=== PATIENT | male | born 1950 | race Caucasian/White ===

== ENCOUNTER → 2019-03-12 | Outpatient (CLI) | payer MEDICARE ==
--- NOTE | 2019-03-12 16:33 | REP ---
Fluoroscopic sniff test: History: The patient gives a history of abrupt onset of positional shortness of breath and inability to inspire air in the recumbent, supine position. Comparison is made with recently performed sniff test images from February 18, 2019 as well as chest x-ray from February 16, [address] pulmonary angiogram from February 16, 2019, all done at [facility]. Procedure: The sniff test was conducted initially with the patient standing as is usual and bilateral CINE fluoroscopy was performed during the sniffing maneuver. The diaphragms were observed to move appropriately and symmetrically in direction however, decreased diaphragmatic amplitude and decreased diaphragmatic velocity was observed bilaterally and symmetrically. There is no evidence to suggest unilateral or bilateral diaphragmatic paralysis. However bilateral symmetric diaphragmatic weakness may be a possibility. On review of the patient's CT pulmonary angiogram there is hypoventilation, bilateral lower lobe atelectatic changes associated with this, and there are granulomatous lymph node calcifications scattered about the left hilus and subcarinal region. Incidental note is made of a generalized but fairly impressive hypertrophy of upper abdominal and retroperitoneal fat. This contrasts with the relatively thin subcutaneous fatty layer. Impression: There is no evidence of paradoxical diaphragmatic movement. There is bilateral and symmetric decreased amplitude and decreased velocity of the diaphragm movement with sniffing. Generalized hypertrophy of the intra-abdominal fat noted in the upper abdomen on recent CT scan. Electronically Signed by Julio Cesar Jenkins MD 03/12/2019 06:15 P
== END ==
LOC: M RAD 14:30
PROVIDERS: ATTEND Internal Medicine Pulmonary Disease
DX: J98.6 Disorders of diaphragm (principal)

== ENCOUNTER → 2019-03-18 | Outpatient (CLI) | payer MEDICARE ==
--- NOTE | 2019-03-19 02:48 | REP ---
Clinical: Diaphragm disorder. Technique: Frontal inspiration and expiration views. Findings: Trace bibasilar fibroatelectatic changes cannot be excluded. No definite effusion. Symmetric decreased lung volumes on inspiration noted. No pneumothorax. Cardiac silhouette appears normal. Skeletal structures intact. Impression: Decreased volumes on the inspiratory film with trace bibasilar fibroatelectatic changes suggested. Electronically Signed by Sebastián García MD 03/19/2019 02:39 A
== END ==
LOC: M RAD 12:47
PROVIDERS: ATTEND Internal Medicine Pulmonary Disease
DX: J98.6 Disorders of diaphragm (principal)

== ENCOUNTER → 2019-03-22 | Outpatient (CLI) | payer MEDICARE ==
--- NOTE | 2019-03-25 20:47 | SLEEPCENT ---
DATE OF PROCEDURE: 03/22/2019 ORDERED BY: Dr. Sheldon Laurent Nocturnal polysomnography was performed for evaluation of sleep physiology in this patient with a history consistent with the obstructive sleep apnea syndrome who has suffered diaphragm dysfunction. 7 hours and 57 minutes of data were reviewed. There were 276.5 minutes of sleep identified. Sleep latency was prolonged at 47.5 minutes. REM latency was further prolonged at 136.5 minutes. Sleep architecture showed severe fragmentation. There were three brief REM periods late in the study. Overall sleep efficiency was only 60% due to periods of wake after sleep onset. The electrocardiogram showed a sinus rhythm with premature ventricular contractions (PVCs), average heart rate 65 beats per minute. EEG showed reasonably normal waveforms for awake and sleep stages. An attempt was made to monitor transcutaneous EMG of the diaphragm; however, the waveforms were less than optimal. There were, however, 58 respiratory events identified of 10 seconds in duration or greater for an apnea-hypopnea index of 12.6. The events were purely obstructive, not exclusive to sleep stage, more frequent but not exclusive to the supine posture. Arousals associated with respiratory events occurred 4.6 times per hour and oxygen desaturations were seen into the 70s. There was also some limb activity but no trains of events. Limb movement arousal index was 4.6. Snoring was noted over the course of the study. IMPRESSION: Obstructive sleep apnea syndrome (G47.33). Apnea-hypopnea index 12.6. RECOMMENDATIONS: The patient should be encouraged to return to the sleep disorder center for pressure therapy. Given the diaphragm dysfunction, use of a bilevel device and backup rate may be necessary. In the interim alcohol and sedative avoidance should be practiced and caution exercised during operation of motor vehicles.
== END ==
LOC: M SLEEP 20:00
PROVIDERS: ATTEND Internal Medicine Pulmonary Disease
DX: J98.6 Disorders of diaphragm (principal)

== ENCOUNTER → 2019-04-05 | Outpatient (CLI) | payer MEDICARE ==
--- NOTE | 2019-04-09 14:44 | SLEEPCENT ---
DATE OF PROCEDURE: 04/05/2019 ORDERED BY: Sheldon Laurent DO Nocturnal polysomnography was performed for the titration of pressure therapy in this patient with obstructive sleep apnea syndrome, apnea-hypopnea index of 12, complicated by diaphragm paralysis. For testing the patient was fit with a [employer], [employer] full-face mask of medium size; 4 cm of water pressure applied to the surface to the circuit and the lights were extinguished. 7 hours and 33 minutes of data were reviewed. There were 305 minutes of sleep identified. Sleep latency was mildly prolonged at 23.5 minutes. Rapid eye movement (REM) latency was normal at 80.5 minutes. Sleep architecture was fairly good with 3 REM cycles. Overall sleep efficiency was 68.5% due to periods of wake. The patient's electrocardiogram showed a sinus rhythm with an average heart rate of 62 beats per minute. Rate range 46-82. Electroencephalogram (EEG) showed normal waveforms for awake and sleep. Some mild alpha intrusion is suspected in non REM stages. Persistence of respiratory events prompted an increase in CPAP pressure, and despite optimal mask fit and minimal air leak the patient was changed to a bilevel device. Sleep was seen on inspiratory pressure of 21 over an expiratory pressure of 15 with which the patient slept through REM in the supine posture without respiratory event or significant oxygen desaturation. Scattered limb activity was appreciated on the electromyogram (EMG). Limb movement arousal index was only 2.6. IMPRESSION: Obstructive sleep apnea syndrome (G47.33). RECOMMENDATIONS: Nightly use of pressure therapy delivered via bilevel device inspiratory 21 over expiratory 15.
== END ==
LOC: M SLEEP 20:00
PROVIDERS: ATTEND Internal Medicine Pulmonary Disease
DX: G47.33 Obstructive sleep apnea (adult) (pediatric) (principal)

== ENCOUNTER → 2019-04-28 | Outpatient (CLI) | payer MEDICARE ==
[2019-04-28 14:02] LABS: BLOOD UREA NITROGEN 16 MG/DL (7-18); CALCIUM LEVEL 9.1 MG/DL (8.8-10.2); CARBON DIOXIDE LEVEL 33 MEQ/L (21-32); CHLORIDE LEVEL 99 MEQ/L (98-107); CREATININE FOR GFR 0.95 MG/DL (0.70-1.30); GLOMERULAR FILTRATION RATE > 60.0 (>49); GLUCOSE, FASTING 137 MG/DL (70-100); SODIUM LEVEL 139 MEQ/L (136-145)
== END ==
LOC: M WUC 09:17
PROVIDERS: ATTEND Internal Medicine
DX: R60.0 Localized edema (principal)

== ENCOUNTER → 2024-10-15 | Outpatient (CLI) | payer MEDICARE ==
[2024-10-18 15:06] LABS: CHOLESTEROL,TOTAL 250 mg/dL (100-199); HDL-C 93 mg/dL (>39); HDL-P (TOTAL) 47.4 umol/L (>=30.5); LDL SIZE 21.8 nm (>20.5); LDL-C 138 mg/dL (0-99); LDL-P 967 nmol/L (<1000); LP-IR SCORE <25 (<=45); SMALL LDL-P 132 nmol/L (<=527); TRIGLYCERIDES 114 mg/dL (0-149)
== END ==
LOC: M LAB 13:04
PROVIDERS: ATTEND Nurse Practitioner Family
DX: E78.2 Mixed hyperlipidemia (principal); Z13.220 Encounter for screening for lipoid disorders